=== PATIENT | male | born 1990 | race Caucasian/White ===

== ENCOUNTER 2016-12-10 20:54 | Emergency (ER) | payer OTHER ==
[~2016-12-10] VITALS: Ht 182.9 cm; Wt 81.8 kg
[~2016-12-10 20:54] MED LIST: NO HOME MEDICATIONS
[2016-12-10 20:57] VITALS: TEMP 97
[2016-12-10] MEDS ORDERED: ULTRAM 50MG TAB50 MG PO (21:20)
[2016-12-10] MEDS ORDERED: PERCOCET 325 MG1 TA2 PO (21:23)
[2016-12-10 22:05] VITALS: BP 120/70; PULSE 78
== END 2016-12-10 22:05 | disposition home or self-care (01) ==
LOC: COL.ER 20:54
DX: M54.5 Low back pain (principal)
CPT/HCPCS: J1170; J1885